=== PATIENT | male | born 1945 | race Caucasian/White ===

== ENCOUNTER → 2024-09-14 | Outpatient (CLI) | payer MEDICARE ==
--- NOTE | 2024-09-14 09:03 | CT ---
EXAMINATION TYPE: CT brain wo con CT DLP: 1167.20 mGycm, Automated exposure control for dose reduction was used. DATE OF EXAM: 09/14/2024 8:54 AM COMPARISON: None. CLINICAL INDICATION: Male, 79 years old with history of R07.9 CHEST PAIN,R55 SYNCOPE,R56.9 SEIZURES, Seizure, syncope TECHNIQUE: Brain: Axial CT images of the brain were obtained with coronal and sagittal reformats created and rev iewed. Contrast used: None. Oral contrast used: None. FINDINGS: Brain: Extra-axial spaces: No abnormal extra-axial fluid collections. Ventricular system: Dilatation in proportion to cerebral atrophy. Cerebral parenchyma: Cerebral atrophy. No acute intraparenchymal hemorrhage or mass effect. The joyner -white junction is well differentiated. Scattered hypoattenuating areas are seen within the white mat ter. Cerebellum: Unremarkable. Mass effect: No evidence of midline shift. Intracranial vasculature: Atherosclerotic calcifications of the intracranial vessels. Soft tissues: Normal. Calvarium/osseous structures: No depressed skull fracture. Paranasal sinuses and mastoid air cells: Complete opacification of the left maxillary sinus with lunchroom mother nieves sinusitis changes to the surrounding bones. Visualized orbits: Left aphakia IMPRESSION: 1. No acute intracranial process. 2. Nonspecific white matter changes, likely secondary to chronic small vessel ischemic disease. 3. Chronic left paranasal sinus disease. [facility], , 09/14/2024 9:01 AM
--- NOTE | 2024-09-14 09:23 | CT ---
EXAMINATION TYPE: CT chest wo con CT DLP: 189.90 mGycm, Automated exposure control for dose reduction was used. DATE OF EXAM: 09/14/2024 8:54 AM COMPARISON: CT abdomen and pelvis 05/23/2016. CLINICAL INDICATION:Male, 79 years old with history of R07.9 CHEST PAIN,R55 SYNCOPE,R56.9 SEIZURES; P HH, Chest pain, syncope TECHNIQUE: Multiple axial images were obtained through the chest without IV contrast. Lack of IV or o ral contrast limits evaluation of solid and hollow organ viscera. . Coronal and sagittal reformats re viewed. FINDINGS: LUNGS/ PLEURA: Moderate centrilobular emphysematous changes. No pleural effusion, pneumothorax, focal consolidation. Right lower lobe 5.5 mm pulmonary nodule abutting the right major fissure (series 4, image 42). Right middle lobe 4.3 mm pulmonary nodule (series 4, image 35). AIRWAY: Patent. Trace secretions identified within the trachea. Tracheal diverticulum identified. HEART: Size within normal limits. Trace anterior pericardial effusion. Moderate coronary arterial faith cifications. MEDIASTINUM: No gross evidence of adenopathy. VASCULATURE: No aortic aneurysm. Mild atherosclerotic calcification of the aorta and its branches. MUSCULOSKELETAL: No acute osseous abnormalities. Mild multilevel degenerative disc disease. SOFT TISSUES/LYMPH NODES: Unremarkable. LOWER NECK: No significant findings. UPPER ABDOMEN: Moderate sized hiatal hernia. Stable small left hepatic lobe cysts. Cholelithiasis. No nobstructive left renal calculi measuring up to 5 mm. IMPRESSION: 1. No CT evidence for acute thoracic process. 2. Couple of pulmonary nodules measuring up to 5.5 mm. In a low-risk patient, no follow-up is recomme nded. In a high-risk patient consider optional CT chest in 12 months. 3. Moderate COPD changes. 4. Nonobstructive left renal calculi. 5. Cholelithiasis. 6. Moderate sized hiatal hernia. 7. Trace secretions within the trachea with a tracheal diverticulum identified. [facility], , 09/14/2024 9:21 AM
== END | disposition home or self-care (01) ==
LOC: RADCTMAIN 08:21
PROVIDERS: ATTEND Family Medicine
CPT/HCPCS: 70450; 71250

== ENCOUNTER → 2024-12-10 | Outpatient (CLI) | payer MEDICARE ==
--- NOTE | 2024-12-10 09:33 | CT ---
EXAMINATION TYPE: CT chest wo con DATE OF EXAM: 12/10/2024 8:41 AM COMPARISON: 09/14/2024 CLINICAL INDICATION: Male, 79 years old with history of J44.9 COPD R06.02 SOB R05 COUGH; PHH, copd TECHNIQUE: Multiple axial images were obtained through the chest. Sagittal and coronal reformats were created for review. MIP was performed on a separate workstation. Contrast used: mL of (None if empty) Oral contrast used: (None if empty) CT DLP: 194.4 mGycm, Automated exposure control for dose reduction was used. FINDINGS: LUNGS/ PLEURA: No focal consolidation, pneumothorax or pleural effusion. Centrilobular emphysema carney ges throughout the lungs. Right intrafissural lymph node series 3 image 46 along the major fissure on the right near the diaphragm AIRWAY: Patent and unremarkable. Mild bronchial wall thickening. Tracheal diverticulum just right of the trachea as it enters the thoracic inlet is unchanged. HEART: Size within normal limits.Atherosclerosis of the arterial vasculature. MEDIASTINUM: No gross evidence of adenopathy. Moderate hiatal hernia. VASCULATURE: No aortic aneurysm. MUSCULOSKELETAL: No acute osseous abnormalities SOFT TISSUES/LYMPH NODES: Unremarkable. LOWER NECK: No significant findings. UPPER ABDOMEN: Scattered cysts throughout the liver. Nonobstructing 2 mm renal calculus. The gallblad royer is not fully visualized. IMPRESSION: 1. No acute process. 2. Mild to moderate emphysema and COPD. 3. Stable pulmonary nodules, No suspicious clinically significant pulmonary nodules. 4. Moderate hiatal hernia. [facility], , 12/10/2024 9:31 AM
== END | disposition home or self-care (01) ==
LOC: RADCTMAIN 08:24
PROVIDERS: ATTEND Family Medicine
DX: J44.9 Chronic obstructive pulmonary disease, unspecified (principal); J43.9 Emphysema, unspecified; K44.9 Diaphragmatic hernia without obstruction or gangrene; R91.8 Other nonspecific abnormal finding of lung field
CPT/HCPCS: 71250

== ENCOUNTER → 2024-12-23 | Outpatient (CLI) | payer MEDICARE ==
[2024-12-23 15:33] LABS: Chol/HDL Ratio 1.98 Ratio; LDL Cholesterol,Calculated 58.9 mg/dL (0.0-131.0); VLDL Calculation 11.34 mg/dL (5.00-40.00)
[2024-12-23 16:24] LABS: ALT 19 U/L (10-49); AST 31 U/L (14-35)
== END | disposition home or self-care (01) ==
LOC: LABWHC1 08:51
PROVIDERS: ATTEND Internal Medicine Interventional Cardiology
DX: J47.9 Bronchiectasis, uncomplicated (principal); J32.8 Other chronic sinusitis; D80.1 Nonfamilial hypogammaglobulinemia
CPT/HCPCS: 36415; 80061; 82784; 82785; 84450; 84460